=== PATIENT | male | born 1980 | race Caucasian/White ===

== ENCOUNTER 2023-08-22 02:21 | Observation (INO) | payer OTHER ==
[2023-08-22] MEDS ORDERED: SODIUM CHLORIDE 0.9% 1,000 ML IV STA (02:37)
[2023-08-22] MEDS ORDERED: ONDANSETRON 4 MG/2 ML VIAL IVP STA (02:37)
--- NOTE | 2023-08-22 02:41 | ED ---
General Adult HPI - General Source: patient, RN notes reviewed Mode of arrival: ambulatory Limitations: no limitations <Tee Aguayo - Last Filed: 08/22/23 02:38> - History of Present Illness -: hour(s) Location: abdomen Radiation: abdomen Severity scale (1-10): 10 Quality: aching Consistency: constant Improves with: none Worsens with: none Associated Symptoms: nausea/vomiting, weakness Treatments Prior to Arrival: none <Efren Gomez - Last Filed: 08/24/23 22:39> - General Chief complaint: Abdominal Pain Stated complaint: abd pain Time Seen by Provider: 08/22/23 02:33 - History of Present Illness Initial comments: 42-year-old male presents emergency Department chief complaint abdominal pain. Patient states started this evening around 6 PM. Patient states it is started shortly after eating. He states it's more in his upper abdomen into the left side. Denies any significant change in bowel habits he has been nausea and vomiting denies fevers chills chest pain shortness of breath. Patient had no prior abdominal surgeries. He does have a history of hypertension and takes medications for his blood pressure. Patient denies any sick contacts denies any severe flank pain no other complaints. (Tee Aguayo) This is a 42-year-old male DF for evaluation of abdominal pain. Patient states his left-sided throughout with no prior abdominal surgery. (Efren Gomez) - Related Data Home Medications Medication Instructions Recorded Confirmed Famotidine [Pepcid] 20 mg PO DAILY 08/22/23 08/22/23 Losartan-Hctz 50-12.5 mg [Hyzaar 1 tab PO DAILY 08/22/23 08/22/23 50-12.5] Rosuvastatin [Crestor] 10 mg PO DAILY 08/22/23 08/22/23 Previous Rx's Medication Instructions Recorded HYDROcodone/APAP 5-325MG [[place]hu[place] 1 tab PO Q6HR PRN 3 Days #12 tab 08/22/23 5-325] Allergies Allergy/AdvReac Type Severity Reaction Status Date / Time No Known Allergies Allergy Verified 08/22/23 07:21 Review of Systems ROS Other: All systems not noted in ROS Statement are negative. <Tee Aguayo - Last Filed: 08/22/23 02:38> ROS Other: All systems not noted in ROS Statement are negative. <ArlenalfredoEfren pino - Last Filed: 08/24/23 22:39> ROS Statement: Those systems with pertinent positive or pertinent negative responses have been documented in the HPI. Past Medical History Past Medical History: Hypertension History of Any Multi-Drug Resistant Organisms: None Reported Past Surgical History: Tonsillectomy Past Psychological History: No Psychological Hx Reported Smoking Status: Never smoker Past Alcohol Use History: None Reported Past Drug Use History: None Reported <Tee Aguayo - Last Filed: 08/22/23 02:38> - Past Family History Father Family Medical History: Hypertension Additional Family Medical History / Comment(s): esophagus cancer, lymphoma <Kei Gomezophanish Yi - Last Filed: 08/24/23 22:39> General Exam Limitations: no limitations General appearance: alert, in no apparent distress Head exam: Present: atraumatic, normocephalic, normal inspection Eye exam: Present: normal appearance, PERRL, EOMI. Absent: scleral icterus, conjunctival injection, periorbital swelling ENT exam: Present: normal exam, mucous membranes moist Neck exam: Present: normal inspection, full ROM. Absent: tenderness, meningismus, lymphadenopathy Respiratory exam: Present: normal lung sounds bilaterally. Absent: respiratory distress, wheezes, rales, rhonchi, stridor Cardiovascular Exam: Present: regular rate, normal rhythm, normal heart sounds. Absent: systolic murmur, diastolic murmur, rubs, gallop, clicks Back exam: Absent: CVA tenderness (R), CVA tenderness (L) Neurological exam: Present: alert Skin exam: Present: warm, dry, intact, normal color. Absent: rash <KeylajuneTee Quigley - Last Filed: 08/22/23 02:38> General appearance: alert, in no apparent distress, anxious Head exam: Present: atraumatic, normocephalic, normal inspection Eye exam: Present: normal appearance, PERRL, EOMI. Absent: scleral icterus, conjunctival injection, periorbital swelling ENT exam: Present: normal exam, mucous membranes moist Neck exam: Present: normal inspection. Absent: tenderness, meningismus, lymphadenopathy Respiratory exam: Present: normal lung sounds bilaterally. Absent: respiratory distress, wheezes, rales, rhonchi, stridor Cardiovascular Exam: Present: regular rate, normal rhythm, normal heart sounds. Absent: systolic murmur, diastolic murmur, rubs, gallop, clicks GI/Abdominal exam: Present: soft, normal bowel sounds. Absent: distended, tenderness, guarding, rebound, rigid Extremities exam: Present: normal inspection, full ROM, normal capillary refill. Absent: tenderness, pedal edema, joint swelling, calf tenderness Back exam: Present: normal inspection Neurological exam: Present: alert, oriented X3, CN II-XII intact Psychiatric exam: Present: normal affect, normal mood Skin exam: Present: warm, dry, intact, normal color. Absent: rash <Efren Gomez - Last Filed: 08/24/23 22:39> Course <Efren Gomez - Last Filed: 08/24/23 22:39> Vital Signs 08/22/23 08/22/23 08/22/23 02:28 04:00 08:57 Temperature 97.5 F L 99.0 F Pulse Rate 74 74 63 Respiratory 18 18 18 Rate Blood Pressure 189/99 175/89 147/92 O2 Sat by Pulse 95 97 97 Oximetry - Reevaluation(s) Reevaluation #1: 08/22/23 06:29 Medical records are reviewed (Efren Gomez) Reevaluation #2: 08/22/23 06:29 Patient is in no acute distress (Efren Gomez) Reevaluation #3: 08/22/23 06:30 Patient informed results questions answered (Efren Gomez) Reevaluation #4: 08/22/23 06:30 Was pt. sent in by a medical professional or institution (, PA, [employer], urgent care, hospital, or residential...) When possible be specific @ -no Did you speak to anyone other than the patient for history (EMS, parent, family, police, friend...)? What history was obtained from this source @ -no Did you review nursing and triage notes (agree or disagree)? Why? @ -agree Are old charts reviewed (outside hosp., previous admission, EMS record, old EKG, old radiological studies, urgent care reports/EKG's, residential records)? Report findings @ -yes Differential Diagnosis (chest pain, altered mental status, abdominal pain women, abdominal pain men, vaginal bleeding, weakness, fever, dyspnea, syncope, hea dache, dizziness, GI bleed, back pain, seizure, CVA, palpatations, mental health, musculoskeletal)? @ -prior EKG interpreted by me (3pts min.). @ -no X-rays interpreted by me (1pt min.). @ -no CT interpreted by me (1pt min.). @ -yes U/S interpreted by me (1pt. min.). @ -no What testing was considered but not performed or refused? (CT, X-rays, U/S, labs)? Why? @ -none What meds were considered but not given or refused? Why? @ -none Did you discuss the management of the patient with other professionals (professionals i.e. , PA, [employer], lab, RT, psych nurse, social science research assistant, tube former operator, teacher, deportation officer, supportive employment case manager)? Give summary @ -no Was smoking cessation discussed for >3mins.? @ -no Was critical care preformed (if so, how long)? @ -no Were there social determinants of health that impacted care today? How? (Homelessness, low income, unemployed, alcoholism, drug addiction, tra nsportation, low edu. Level, literacy, decrease access to med. care, correction, rehab)? @ -none Was there de-escalation of care discussed even if they declined (Discuss DNR or withdrawal of care, Hospice)? DNR status @ -no What co-morbidities impacted this encounter? (DM, HTN, Smoking, COPD, CAD, Cance r, CVA, ARF, Chemo, Hep., AIDS, mental health diagnosis, sleep apnea, morbid obesity)? @ -none Was patient admitted / discharged? Hospital course, mention meds given and route, prescriptions, significant lab abnormalities, going to OR and other pertinent info. @ - 42 male to the emergency department for evaluation of abdominal pain sudden onset of abdominal pain tonight with positive findings of bowel obstruction on computed tomography scan. Patient will be admitted for surgical evaluation ma nagement Admitted Undiagnosed new problem with uncertain prognosis? @ -no Drug Therapy requiring intensive monitoring for toxicity (Heparin, Nitro, Insulin, Cardizem)? @ -no Were any procedures done? @ -no Diagnosis/symptom? @ -Small bowel obstruction Acute, or Chronic, or Acute on Chronic? @ -Acute Uncomplicated (without systemic symptoms) or Complicated (systemic symptoms)? @ -Complicated Side effects of treatment? @ -no Exacerbation, Progression, or Severe Exacerbation? @ -exacerbation Poses a threat to life or bodily function? How? (Chest pain, [place], [place], pneumonia, PE, COPD, DKA, ARF, appy, cholecystitis, CVA, Diverticulitis, Homicidal, Suicidal, threat to staff... and all critical care pts) @ -yes with small bowel obstruction (Efren Gomez) Reevaluation #5: 08/22/23 06:30 Differential Abdominal Pain Men: Appendicitis, cholecystitis, diverticulosis, ischemic bowel, pancreatitis, hepa titis, UTI, gastroenteritis, AAA, incarcerated hernia, bowel obstruction, constipation, inflammatory bowel, hepatitis, peptic ulcer disease, splenic infarction, perforated viscus, testicular torsion, this is not meant to be an all-inclusive list (Efren Gomez) - Consultations Consultation #1: Spoke with sound who agrees to admit this patient (Efren Gomez) Medical Decision Making - Lab Data Result diagrams: 08/22/23 03:10 08/22/23 03:10 - Radiology Data Radiology results: report reviewed (CT of the abdomen and pelvis positive for bowel obstruction), image reviewed <Efren Gomez - Last Filed: 08/24/23 22:39> - Medical Decision Making 42 male to the emergency department for evaluation of abdominal pain sudden onset of abdominal pain tonight with positive findings of bowel obstruction on computed tomography scan. Patient will be admitted for surgical evaluation management (Efren Gomez) - Lab Data Lab Results 08/22/23 08/22/23 08/22/23 Range/Units 03:10 03:10 03:10 WBC 13.6 H (3.8-10.6) k/uL RBC 5.14 (4.30-5.90) m/uL Hgb 15.4 (13.0-17.5) gm/dL Hct 45.3 (39.0-53.0) % MCV 88.0 (80.0-100.0) fL MCH 30.0 (25.0-35.0) pg MCHC 34.1 (31.0-37.0) g/dL RDW 13.4 (11.5-15.5) % Plt Count 336 (150-450) k/uL MPV 7.9 Neutrophils % 77 % Lymphocytes % 17 % Monocytes % 5 % Eosinophils % 1 % Basophils % 0 % Neutrophils # 10.4 H (1.3-7.7) k/uL Lymphocytes # 2.2 (1.0-4.8) k/uL Monocytes # 0.7 (0-1.0) k/uL Eosinophils # 0.1 (0-0.7) k/uL Basophils # 0.0 (0-0.2) k/uL Sodium 138 (137-145) mmol/L Potassium 4.4 (3.5-5.1) mmol/L Chloride 101 (98-107) mmol/L Carbon Dioxide 25 (22-30) mmol/L Anion Gap 12 mmol/L BUN 15 (9-20) mg/dL Creatinine 0.83 (0.66-1.25) mg/dL Est GFR (CKD-EPI)AfAm >90 (>60 ml/min/1.73 sqM) Est GFR (CKD-EPI)NonAf >90 (>60 ml/min/1.73 sqM) Glucose 137 H (74-99) mg/dL Plasma Lactic Acid Marshall 1.7 (0.7-2.0) mmol/L Calcium 10.0 (8.4-10.2) mg/dL Total Bilirubin 0.5 (0.2-1.3) mg/dL AST 27 (17-59) U/L ALT 28 (4-49) U/L Alkaline Phosphatase 85 (38-126) U/L Total Protein 7.2 (6.3-8.2) g/dL Albumin 4.4 (3.5-5.0) g/dL Lipase 73 (23-300) U/L Urine Color Urine Appearance (Clear) Urine pH (5.0-8.0) Ur Specific W[place] (1.001-1.035) Urine Protein (Negative) Urine Glucose (UA) (Negative) Urine Ketones (Negative) Urine Blood (Negative) Urine Nitrite (Negative) Urine Bilirubin (Negative) Urine Urobilinogen (<2.0) mg/dL Ur Leukocyte Esterase (Negative) 08/22/23 Range/Units 04:15 WBC (3.8-10.6) k/uL RBC (4.30-5.90) m/uL Hgb (13.0-17.5) gm/dL Hct (39.0-53.0) % MCV (80.0-100.0) fL MCH (25.0-35.0) pg MCHC (31.0-37.0) g/dL RDW (11.5-15.5) % Plt Count (150-450) k/uL MPV Neutrophils % % Lymphocytes % % Monocytes % % Eosinophils % % Basophils % % Neutrophils # (1.3-7.7) k/uL Lymphocytes # (1.0-4.8) k/uL Monocytes # (0-1.0) k/uL Eosinophils # (0-0.7) k/uL Basophils # (0-0.2) k/uL Sodium (137-145) mmol/L Potassium (3.5-5.1) mmol/L Chloride (98-107) mmol/L Carbon Dioxide (22-30) mmol/L Anion Gap mmol/L BUN (9-20) mg/dL Creatinine (0.66-1.25) mg/dL Est GFR (CKD-EPI)AfAm (>60 ml/min/1.73 sqM) Est GFR (CKD-EPI)NonAf (>60 ml/min/1.73 sqM) Glucose (74-99) mg/dL Plasma Lactic Acid Marshall (0.7-2.0) mmol/L Calcium (8.4-10.2) mg/dL Total Bilirubin (0.2-1.3) mg/dL AST (17-59) U/L ALT (4-49) U/L Alkaline Phosphatase (38-126) U/L Total Protein (6.3-8.2) g/dL Albumin (3.5-5.0) g/dL Lipase (23-300) U/L Urine Color Colorless Urine Appearance Clear (Clear) Urine pH 7.0 (5.0-8.0) Ur Specific [place] >1.050 H (1.001-1.035) Urine Protein Negative (Negative) Urine Glucose (UA) Negative (Negative) Urine Ketones Negative (Negative) Urine Blood Negative (Negative) Urine Nitrite Negative (Negative) Urine Bilirubin Negative (Negative) Urine Urobilinogen <2.0 (<2.0) mg/dL Ur Leukocyte Esterase Negative (Negative) Disposition <Tee Aguayo - Last Filed: 08/22/23 02:38> Is patient prescribed a controlled substance at d/c from ED?: No Time of Disposition: 06:40 <Efren Gomez - Last Filed: 08/24/23 22:39> Clinical Impression: SBO (small bowel obstruction) Disposition: ADMITTED IP TO THIS HOSP Condition: Stable
[2023-08-22 03:30] LABS: Basophils % (A) 0 %; Eosinophils # (A) 0.1 k/uL (0-0.7); Eosinophils % (A) 1 %; HCT 45.3 % (39.0-53.0); HGB 15.4 gm/dL (13.0-17.5); Lymphocytes # (A) 2.2 k/uL (1.0-4.8); Lymphocytes % (A) 17 %; MCHC 34.1 g/dL (31.0-37.0); Mean Platelet Volume 7.9; Monocytes # (A) 0.7 k/uL (0-1.0); Monocytes % (A) 5 %; Neutrophils # (A) 10.4 k/uL (1.3-7.7); Neutrophils % (A) 77 %; Platelet Count 336 k/uL (150-450); RBC 5.14 m/uL (4.30-5.90); RDW 13.4 % (11.5-15.5); WBC 13.6 k/uL (3.8-10.6)
[2023-08-22 03:41] LABS: ALT 28 U/L (4-49); AST 27 U/L (17-59); African American GFR (CKD) >90 (>60 ml/min/1.73 sqM); Albumin 4.4 g/dL (3.5-5.0); Alkaline Phosphatase 85 U/L (38-126); Anion Gap 12 mmol/L; Blood Urea Nitrogen 15 mg/dL (9-20); Carbon Dioxide 25 mmol/L (22-30); Chloride 101 mmol/L (98-107); Glucose 137 mg/dL (74-99); Lipase 73 U/L (23-300); Non-African American GFR(CKD) >90 (>60 ml/min/1.73 sqM); Potassium 4.4 mmol/L (3.5-5.1); Sodium 138 mmol/L (137-145); Total Bilirubin 0.5 mg/dL (0.2-1.3); Total Protein 7.2 g/dL (6.3-8.2)
[2023-08-22 05:55] LABS: Appearance,Urine Clear (Clear); Bilirubin,Urine Negative (Negative); Blood,Urine Negative (Negative); Color,Urine Colorless; Glucose,Urine (UA) Negative (Negative); Ketones,Urine Negative (Negative); Leukocyte Esterase,Urine Negative (Negative); Nitrite,Urine Negative (Negative); Protein,Urine Negative (Negative); Urobilinogen,Urine <2.0 mg/dL (<2.0)
[2023-08-22 05:59] LABS: Specific Gravity,Urine >1.050 (1.001-1.035)
--- NOTE | 2023-08-22 06:20 | CT ---
EXAM: CT Abdomen and Pelvis With Intravenous Contrast CLINICAL HISTORY: ITS.REASON CT Reason: abdominal pain TECHNIQUE: Axial computed tomography images of the abdomen and pelvis with intravenous contrast. CTDI is 64.16 mGy and DLP is 3440.4 mGy-cm. This CT exam was performed using one or more of the following dose reduction techniques: automated exposure control, adjustment of the mA and/or kV according to patient size, and/or use of iterative reconstruction technique. COMPARISON: No relevant prior studies available. FINDINGS: Lung bases: Unremarkable. No mass. No consolidation. ABDOMEN: Liver: Unremarkable. No mass. Gallbladder and bile ducts: Unremarkable. No calcified stones. No ductal dilation. Pancreas: Unremarkable. No mass. No ductal dilation. Spleen: Unremarkable. No splenomegaly. Adrenals: Left adrenal mass with partial opacifications measuring up to 3.4 cm. Consider MRI on a nonemergent basis. Kidneys and ureters: Simple right renal cyst. No follow-up of this simple cyst is necessary. No hydronephrosis. Stomach and bowel: See below. PELVIS: Appendix: Normal appendix. Bladder: Unremarkable. No mass. Reproductive: Unremarkable as visualized. ABDOMEN and PELVIS: Intraperitoneal space: Dilated loops of small bowel measuring up to 4. 1 cm. In addition point is poorly identified but appears to be within the left upper quadrant with asymmetric mesenteric edema and ascites within multiple dilated bowel loops. Findings may relate to developing bowel obstruction. Closed-loop obstruction is possible given asymmetric mesenteric edema and ascites. Please note however, that the transition point or poorly visualized. No free air. Bones/joints: Degenerative changes in the spine. No acute fracture. No dislocation. Soft tissues: Umbilical hernia containing fat. Vasculature: Atherosclerotic disease. No abdominal aortic aneurysm. Lymph nodes: Unremarkable. No enlarged lymph nodes. IMPRESSION: 1. Dilated loops of small bowel measuring up to 4.1 cm. In addition point is poorly identified but appears to be within the left upper quadrant with asymmetric mesenteric edema and ascites within multiple dilated bowel loops. Findings may relate to developing bowel obstruction. Closed-loop obstruction is possible given asymmetric mesenteric edema and ascites. Please note however, that the transition point or poorly visualized. 2. No evidence of pneumatosis, portal venous gas, or free air. 3. Left adrenal mass with partial opacifications measuring up to 3.4 cm. Consider MRI on a nonemergent basis. 4. No other acute findings. 5. Incidental findings as described. <MYCVCSECTION> Communications: 08/22/23 06:22 Call Doctor Regarding Above results, called Dr. Rea on 08/22 06:22 (-05:00)
[2023-08-22] MEDS ORDERED: NALOXONE 0.4 MG/ML 1 ML VIAL IV PRN (06:27)
[2023-08-22] MEDS ORDERED: ONDANSETRON 4 MG/2 ML VIAL IVP PRN (06:27)
[2023-08-22] MEDS ORDERED: MORPHINE SULFATE 4 MG/ML SYRINGE IV PRN (06:27)
[2023-08-22] MEDS ORDERED: SODIUM CHLORIDE 0.9% 1,000 ML IV SCH (06:30)
[2023-08-22] MEDS ORDERED: AMPICILLIN-SULBACTAM 3 GM in SODIUM CHLORIDE 0.9% 100 ML IVPB STA (06:50)
[2023-08-22] MEDS ORDERED: ENOXAPARIN 40 MG/0.4 ML SYRINGE SQ SCH (09:00)
--- NOTE | 2023-08-22 10:27 | P.GSCN ---
History of Present Illness Consult date: 08/22/23 History of present illness: CHIEF COMPLAINT: Abdominal pain HISTORY OF PRESENT ILLNESS: This is a 42-year-old male who presented to the hospital with complaints of abdominal pain. Patient reports this pain started on the right side of the abdomen and then moved to the left side of abdomen. Symptoms started yesterday evening after eating dinner. He had hotdogs with chili for dinner. He rates his pain 8 out of 10 on admission and now pain is about a 5 out of 10. Patient reports having a small bowel movement yesterday. Also is having dry heaves. This morning he is passing gas. He reports that his abdominal pain is improving. He denies any nausea at this time. He reports decreased abdominal bloating. He had a computed tomography scan abdomen and pelvis that reported findings may relate to developing bowel obstruction. Therefore surgical service was consulted. Patient denies any prior abdominal surgeries. Does have a family history of an aunt with Crohn's disease and a father with diverticulitis. Patient denies any prior history of bowel obstr uction. PAST MEDICAL HISTORY: Hypertension PAST SURGICAL HISTORY: Tonsillectomy MEDICATIONS: See below ALLERGIES: See below SOCIAL HISTORY: No illicit drug use. REVIEW OF SYSTEMS: CONSTITUTIONAL: Denies fever or chills. HEENT: Denies blurred vision, vision changes, or eye pain. Denies hemoptysis CARDIOVASCULAR: Denies chest pain or pressure. RESPIRATORY: No shortness of breath. GASTROINTESTINAL: See HPI for pertinent findings HEMATOLOGIC: Denies bleeding disorders. GENITOURINARY: Denies any blood in urine or increased urinary frequency. SKIN: Denies pruitis. Denies rash. PHYSICAL EXAM: VITAL SIGNS: Reviewed. Elevated BP GENERAL: Well-developed in no acute distress. ABDOMEN: Soft. Nondistended. Nontender NEUROLOGIC: Alert and oriented. Cranial nerves II through XII grossly intact. LABORATORY DATA: WBC 13.6 Hgb 15.4 platelets 336 Sodium 138 potassium 4.4 creatinine 0.83 Lactic acid 1.7 LFTs normal lipase 73 Urinalysis for infection IMAGING: Computed tomography scan abdomen and pelvis reports dilated loops of small bowel measuring up to 4.1 cm transition point is poorly identified that appears to be within the left upper quadrant with asymmetric mesenteric edema and ascites with multiple dilated bowel loops. Findings may relate to developing bowel obstr uction. Closed-loop obstruction is possible given asymmetric mesenteric edema and ascites. No evidence of pneumatosis, portal renal gas or free air. Left adrenal mass with partial complex past patient measuring up to 3.4 centimeters. Consider MRI on on emergent basis. ASSESSMENT: 1. Abdominal pain. CT findings of abdomen may relate to developing bowel obstruction. Possible closed loop obstruction 2. Possible developing bowel obstruction PLAN: -Computed tomography scan abdomen and pelvis with oral contrast ordered for further evaluations of patient's abdominal pain and possible bowel obstruction -Patient nothing by mouth -Continue IV fluids -Continue supportive care Thank you for this consultation Physician Director Of Physical Security note has been reviewed by physician. Signing provider agrees with the documented findings, assessment, and plan of care. Past Medical History Past Medical History: Hypertension History of Any Multi-Drug Resistant Organisms: None Reported Past Surgical History: Tonsillectomy Past Psychological History: No Psychological Hx Reported Smoking Status: Never smoker Past Alcohol Use History: None Reported Past Drug Use History: None Reported - Past Family History Father Family Medical History: Hypertension Additional Family Medical History / Comment(s): esophagus cancer, lymphoma Medications and Allergies Home Medications Medication Instructions Recorded Confirmed Type Famotidine [Pepcid] 20 mg PO DAILY 08/22/23 08/22/23 History Losartan-Hctz 50-12.5 mg [Hyzaar 1 tab PO DAILY 08/22/23 08/22/23 History 50-12.5] Rosuvastatin [Crestor] 10 mg PO DAILY 08/22/23 08/22/23 History Allergies Allergy/AdvReac Type Severity Reaction Status Date / Time No Known Allergies Allergy Verified 08/22/23 07:21 Surgical - Exam Vital Signs Temp Pulse Resp BP Pulse Ox 97.5 F L 74 18 189/99 95 08/22/23 02:28 08/22/23 02:28 08/22/23 02:28 08/22/23 02:28 08/22/23 02:28 Results - Labs 08/22/23 03:10 08/22/23 03:10 Abnormal Lab Results - Last 24 Hours (Table) 08/22/23 08/22/23 08/22/23 Range/Units 03:10 03:10 04:15 WBC 13.6 H (3.8-10.6) k/uL Neutrophils # 10.4 H (1.3-7.7) k/uL Glucose 137 H (74-99) mg/dL Ur Specific [place] >1.050 H (1.001-1.035) Diabetes panel 08/22/23 Range/Units 03:10 Sodium 138 (137-145) mmol/L Potassium 4.4 (3.5-5.1) mmol/L Chloride 101 (98-107) mmol/L Carbon Dioxide 25 (22-30) mmol/L BUN 15 (9-20) mg/dL Creatinine 0.83 (0.66-1.25) mg/dL Glucose 137 H (74-99) mg/dL Calcium 10.0 (8.4-10.2) mg/dL AST 27 (17-59) U/L ALT 28 (4-49) U/L Alkaline Phosphatase 85 (38-126) U/L Total Protein 7.2 (6.3-8.2) g/dL Albumin 4.4 (3.5-5.0) g/dL Calcium panel 08/22/23 Range/Units 03:10 Calcium 10.0 (8.4-10.2) mg/dL Albumin 4.4 (3.5-5.0) g/dL Pituitary panel 08/22/23 Range/Units 03:10 Sodium 138 (137-145) mmol/L Potassium 4.4 (3.5-5.1) mmol/L Chloride 101 (98-107) mmol/L Carbon Dioxide 25 (22-30) mmol/L BUN 15 (9-20) mg/dL Creatinine 0.83 (0.66-1.25) mg/dL Glucose 137 H (74-99) mg/dL Calcium 10.0 (8.4-10.2) mg/dL Adrenal panel 08/22/23 Range/Units 03:10 Sodium 138 (137-145) mmol/L Potassium 4.4 (3.5-5.1) mmol/L Chloride 101 (98-107) mmol/L Carbon Dioxide 25 (22-30) mmol/L BUN 15 (9-20) mg/dL Creatinine 0.83 (0.66-1.25) mg/dL Glucose 137 H (74-99) mg/dL Calcium 10.0 (8.4-10.2) mg/dL Total Bilirubin 0.5 (0.2-1.3) mg/dL AST 27 (17-59) U/L ALT 28 (4-49) U/L Alkaline Phosphatase 85 (38-126) U/L Total Protein 7.2 (6.3-8.2) g/dL Albumin 4.4 (3.5-5.0) g/dL
[2023-08-22] MEDS: IOPAMIDOL CONTRAST (ORAL USE) VIAL PO PRN ×2 (11:31→12:34)
--- NOTE | 2023-08-22 13:51 | CT ---
EXAMINATION TYPE: CT abdomen pelvis wo con DATE OF EXAM: 08/22/2023 COMPARISON: 08/22/2023, earlier today HISTORY: 42-year-old male Abdominal pain, bowel obstruction CT DLP: 1694.20 mGycm. Automated exposure control for dose reduction was used. TECHNIQUE: Contiguous axial scanning of the abdomen and pelvis without IV contrast. Coronal and sagit ihsan reconstructions performed. FINDINGS: Heart normal size without pericardial effusion. Liver mildly enlarged at 18.9 cm. Suspect underlying fatty infiltration. No abnormal gallbladder dist ention. Redemonstrated left adrenal mass at 3.4 cm. There is overall low density but attenuation is indetermi khanh 16 Hounsfield units. Adrenal adenoma remains favored. Some faint excreted contrast is noted within the kidneys. Benign cortical cyst lower pole right kidn ey at 4.2 cm. Spleen and pancreas within normal limits. The small bowel dilatation seen previously shows improvement in the interval previously measuring up to 4.0 cm and currently measuring up to 3.3 cm. Segments of thickened small bowel remain, for example , axial image 63 and 69. Small amount of residual mesenteric edema remains but also shows improvement in the interval. Some interval fluid remains at the right lower quadrant and tracking down into the left side of the pelvis. Normal appendix. Mild scattered stool. No peripancreatic inflammatory change. IV contrast material fills the bladder lumen. Possible enhancing 1.2 cm focus right side of the prost ate gland. Correlate with PSA values. Otherwise, no abnormal fluid collection the pelvis or pelvic ly mphadenopathy. No osseous destructive process. IMPRESSION: 1. The previous dilated small bowel loops show improvement, previously measuring up to 4.0 cm and cur rently 3.3 cm. Residual mesenteric edema remains but this is also improved in the interval. Consider improving small bowel obstruction. 2. Some residual mild to moderately thickened small bowel loops. This could be thickening reactive to the recent obstruction or could reflect an underlying enteritis. Mild lower abdominal ascites fluid remains. 3. Questionable 1.2 cm focus of enhancement in the right side of the prostate gland. Recommend correl ation with PSA values. 4. Suspect a 3.4 cm left adrenal adenoma. Stability can be confirmed with a 12 month follow-up adrena l mass protocol CT.
[2023-08-22 14:00] VITALS: BP 120/88; RESP 20; TEMP 97.7
--- NOTE | 2023-08-22 14:33 | P.HPIM ---
History of Present Illness H&P Date: 08/22/23 42-year-old male with PMH of hypertension, dyslipidemia, GERD presents to the ED for abdominal pain. Sudden onset around 6 PM. Started after eating dinner. Localized to the RUQ, 10 at that time, 2/10 constant now. One episode on N/V. No prior incidents. Denies and changes in bowel habits or urination. Denies any history of abdominal surgeries. In the ED, he underwent an extensive evaluation. Vital signs showed BP of 189/99. Vital signs otherwise stable. CBC shows leukocytosis of 13.6 with neutrophilia. CMP showed glucose of 137. Lactic acid 1.7. Lipase 73. Urinalysis negative for nitrite or leukocyte esterase. CT AP confirmed dilated loops of bowel measuring up to 4.1 cm, left adrenal mass with partial opacification measuring 3.4 cm Patient is admitted for further management of SBO with surgery on consult. Pertinent positives and negatives as discussed in HPI, a complete review of systems was performed and all other systems are negative. General: non toxic, no distress, appears at stated age Derm: warm, dry Head: atraumatic, normocephalic, symmetric Eyes: EOMI, no lid lag, anicteric sclera Mouth: no lip lesion, mucus membranes moist Cardiovascular: S1S2 reg, no murmur, positive posterior tibial pulse bilateral, Lungs: CTA bilateral, no rhonchi, no rales , no accessory muscle use Abdominal: soft, nontender to palpation, no guarding, no appreciable organomegaly Ext: no gross muscle atrophy, no edema, no contractures Neuro: CN II-XI grossly intact, no focal neuro deficits Psych: Alert, oriented, appropriate affect SBO Left adrenal mass Leukocytosis Hyperglycemia Chronic conditions: Hypertension, dyslipidemia, GERD Based on my assessment of this patient, this patient meets a high complexity level of care. Patient has an acute diagnosis of SBO that poses a threat to life or bodily function. SBO: NPO. NS at 75 cc/hr. Morphine 4 mg IV Q4H PRN for severe pain. Zofran 4 mg IV Q8H PRN for N/V. Surgery consult. Left adrenal mass: Outpatient workup with MRI. Leukocytosis: Likely reactive. Monitor fever profile. Hyperglycemia: Check A1c. Lovenox SQ for DVT prophylaxis. FULL CODE. I have reviewed the following therapeutic consultant notes: I have reviewed the results of the following tests: As above. I have ordered the following tests: CBC, BMP, Mag, A1c. I have discussed the care of this patient with the following independent historian: I have independently interpreted the following test below: CT AP as above. I have discussed the management of this patient with the following physician: Past Medical History Past Medical History: Hypertension History of Any Multi-Drug Resistant Organisms: None Reported Past Surgical History: Tonsillectomy Past Psychological History: No Psychological Hx Reported Smoking Status: Never smoker Past Alcohol Use History: None Reported Past Drug Use History: None Reported - Past Family History Father Family Medical History: Hypertension Additional Family Medical History / Comment(s): esophagus cancer, lymphoma Medications and Allergies Home Medications Medication Instructions Recorded Confirmed Type Famotidine [Pepcid] 20 mg PO DAILY 08/22/23 08/22/23 History Losartan-Hctz 50-12.5 mg [Hyzaar 1 tab PO DAILY 08/22/23 08/22/23 History 50-12.5] Rosuvastatin [Crestor] 10 mg PO DAILY 08/22/23 08/22/23 History Allergies Allergy/AdvReac Type Severity Reaction Status Date / Time No Known Allergies Allergy Verified 08/22/23 07:21 Physical Exam Vitals: Vital Signs Temp Pulse Resp BP Pulse Ox 08/22/23 04:00 74 18 175/89 97 08/22/23 02:28 97.5 F L 74 18 189/99 95 Intake and Output 08/21/23 08/22/23 08/22/23 22:59 06:59 14:59 Other: Weight 140.614 kg Results CBC & Chem 7: 08/22/23 03:10 08/22/23 03:10 Labs: Abnormal Lab Results - Last 24 Hours (Table) 08/22/23 08/22/23 08/22/23 Range/Units 03:10 03:10 04:15 WBC 13.6 H (3.8-10.6) k/uL Neutrophils # 10.4 H (1.3-7.7) k/uL Glucose 137 H (74-99) mg/dL Ur Specific [place] >1.050 H (1.001-1.035)
--- NOTE | 2023-08-22 16:07 | P.DS ---
Providers Date of admission: 08/22/23 06:28 Expected date of discharge: 08/22/23 Attending physician: Earl Thakkar MD Consults: 08/22/23 06:27 Consult Physician Routine Consulting Provider: Shay Hall Consult Reason/Comments: obstruction Do you want consulting provider notified?: Yes [facility] Course: 42-year-old male with PMH of hypertension, dyslipidemia, GERD presents to the ED for abdominal pain. Sudden onset around 6 PM. Started after eating dinner. Localized to the RUQ, 1010 at that time, 2/10 constant now. One episode on N/V. No prior incidents. Denies and changes in bowel habits or urination. Denies any history of abdominal surgeries. In the ED, he underwent an extensive evaluation. Vital signs showed BP of 189/99. Vital signs otherwise stable. CBC shows leukocytosis of 13.6 with neutrophilia. CMP showed glucose of 137. Lactic acid 1.7. Lipase 73. Urinalysis negative for nitrite or leukocyte esterase. CT AP confirmed dilated loops of bowel measuring up to 4.1 cm, left adrenal mass with partial opacification measuring 3.4 cm Patient is admitted for further management of SBO with surgery on consult. Surgery evaluated the patient and recommended CT AP with contrast. This showed improved dilated loops of bowel, now 3.3 cm, residual thickened small bowel looks, 1.2 cm focus of the prostate, 3.4 cm mass of the left adrenal. Patient was advised of the results and the need for further workup with his PCP to rule out cancer. Patient tolerated diet and was cleared by surgery for outpatient follow up. Pertinent studies include CT AP General: non toxic, no distress, appears at stated age Derm: warm, dry Head: atraumatic, normocephalic, symmetric Eyes: EOMI, no lid lag, anicteric sclera Mouth: no lip lesion, mucus membranes moist Cardiovascular: S1S2 reg, no murmur Lungs: CTA bilateral, no rhonchi, no rales , no accessory muscle use Abdominal: soft, nontender to palpation, no guarding, no appreciable organomegaly Ext: no gross muscle atrophy, no edema, no contractures Neuro: no focal neuro deficits Psych: Alert, oriented, appropriate affect Discharge Diagnosis: SBO Left adrenal mass Leukocytosis Hyperglycemia Chronic conditions: Hypertension, dyslipidemia, GERD This complex discharge took 35 minutes to complete. Patient Condition at Discharge: Stable Plan - Discharge Summary Discharge Rx Participant: No New Discharge Prescriptions: New HYDROcodone/APAP 5-325MG [[place] 5-325] 1 tab PO Q6HR PRN 3 Days #12 tab PRN Reason: Pain Continue Famotidine [Pepcid] 20 mg PO DAILY Rosuvastatin [Crestor] 10 mg PO DAILY Losartan-Hctz 50-12.5 mg [Hyzaar 50-12.5] 1 tab PO DAILY Discharge Medication List Famotidine [Pepcid] 20 mg PO DAILY 08/22/23 [History] HYDROcodone/APAP 5-325MG [[place] 5-325] 1 tab PO Q6HR PRN 3 Days #12 tab 08/22/23 [Rx] Losartan-Hctz 50-12.5 mg [Hyzaar 50-12.5] 1 tab PO DAILY 08/22/23 [History] Rosuvastatin [Crestor] 10 mg PO DAILY 08/22/23 [History] Follow up Appointment(s)/Referral(s): None,Stated [REFERRING] - 1-2 days Shay Hall MD [STAFF PHYSICIAN] - 1 Week Activity/Diet/Wound Care/Special Instructions: Diet: Clear liquid diet and advance slowly. Follow up with your PCP with regard to the findings of adrenal and prostate mass seen on CT. You will need further workup. Come back to the ED for worsening abdominal pain, intractable nausea and vomiting. Discharge Disposition: HOME SELF-CARE
[2023-08-22 16:45] VITALS: PULSE 69
== END 2023-08-22 17:59 | disposition home or self-care (01) ==
LOC: EC 02:21 → 4SSUR 06:28 → INTOOBSV 06:28 → 5NMEDONC 08:39 → UNDODISIN 17:59
PROVIDERS: ADMIT Internal Medicine; ATTEND Internal Medicine
DX: K56.609 Unspecified intestinal obstruction, unspecified as to partial versus complete obstruction (principal); D35.02 Benign neoplasm of left adrenal gland; D72.829 Elevated white blood cell count, unspecified; R73.9 Hyperglycemia, unspecified; I10 Essential (primary) hypertension; E78.5 Hyperlipidemia, unspecified; K21.9 Gastro-esophageal reflux disease without esophagitis; Z79.899 Other long term (current) drug therapy
CPT/HCPCS: 96365; 96361; 96372; 96375; 99285; 36415; 80053; 83605; 83690; 85025; 81003; 74176; 74177; G0378; J2405; J1650; J0295; Q9967; 96374

== ENCOUNTER → 2024-02-23 | Outpatient (CLI) | payer OTHER ==
--- NOTE | 2024-03-01 11:09 | CT ---
EXAMINATION TYPE: CT abdomen wo/w con DATE OF EXAM: 02/23/2024 COMPARISON: 08/22/2023 HISTORY: 43-year-old male left adrenal mass TECHNIQUE: Contiguous axial scanning of the abdomen before and after administration of 100 ml Isovue 300 IV contrast. Delayed images and coronal/sagittal reconstructions performed. CT DLP: 3279.3 mGycm Automated exposure control for dose reduction was used. FINDINGS: Heart normal size without pericardial effusion. Lung bases clear without pleural effusion. No focal l iver lesion or ductal dilatation. Portal venous system is patent. Gallbladder, right adrenal gland, left kidney, spleen with tiny hilar splenule, and pancreas within n ormal limits. Partially exophytic 4.4 cm cyst anterior lower pole right kidney slightly larger compared to 4.1 cm, previously. Redemonstrated nodule of the left adrenal gland. This measures 3.5 cm, unchanged. Small amount of per ipheral calcification along the posterior superior margin is unchanged. Noncontrast density of 10 Marvin nsfield units makes it at the threshold of indeterminate lesion. Postcontrast and delayed enhancement is 14 Hounsfield units. The washout calculation is indeterminate. No dilated small bowel, free fluid, or free air. The previous small bowel wall thickening has resolve d. No mesenteric or retroperitoneal lymphadenopathy. Partially visualized normal appendix. Mild stool burden. No pericolonic inflammatory change seen. Pelvis not imaged. Bones: Facet arthropathy lower lumbar spine. No osseous destructive process. IMPRESSION: A 3.5 CM LEFT ADRENAL NODULE REMAINS UNCHANGED FOR 6 MONTHS. BOTH THE DENSITY AND WASHOUT CHARACTERIS TICS REMAIN INDETERMINATE. BENIGN ETIOLOGY SUCH AN ADRENAL ADENOMA OR ADRENAL PSEUDOCYST ARE FAVOR ED. GIVEN THE INDETERMINATE DENSITY AND WASHOUT CHARACTERISTICS, CONSIDER ONE-YEAR FOLLOW-UP ADRENAL PROTOCOL MRI TO CONFIRM THE PRESENCE OF MICROSCOPIC FAT WHICH WOULD INDICATE A BENIGN ADRENAL ADENOMA .
== END | disposition home or self-care (01) ==
LOC: RADCTMAIN 16:45
PROVIDERS: ATTEND Urology
DX: D35.02 Benign neoplasm of left adrenal gland (principal)
CPT/HCPCS: 74170; Q9967